=== PATIENT | male | born 1960 | race Caucasian/White ===

== ENCOUNTER → 2017-09-16 | Outpatient (CLI) | payer BC | LOC: LAB 15:36 | DX: Z00.00 Encounter for general adult medical examination without abnormal findings (principal); E23.0 Hypopituitarism; Z12.5 Encounter for screening for malignant neoplasm of prostate ==

== ENCOUNTER → 2019-05-27 | Outpatient (CLI) | payer BC | LOC: RAD 12:39 | DX: Z11.1 Encounter for screening for respiratory tuberculosis (principal) ==

== ENCOUNTER 2023-12-29 11:13 | Emergency (ER) | payer OTHER ==
[~2023-12-29] VITALS: Ht 185.4 cm; Wt 120.9 kg
[2023-12-29] MEDS ORDERED: ALBUTEROL SULF6.7 GM IH (11:24)
[2023-12-29] MEDS ORDERED: HYDROCORTISONE20 MG (11:24)
[2023-12-29] MEDS ORDERED: ACETAMINOPHEN-H1 TA2 PO (11:24)
[2023-12-29] MEDS ORDERED: TESTOSTERONE75 GM TD (11:24)
[2023-12-29] MEDS ORDERED: MULTIPLE VITAMI1 TA1 PO (11:25)
[2023-12-29] MEDS ORDERED: FISH OIL1 IU PO (11:26)
[2023-12-29] MEDS ORDERED: SYNTHROID25 MCG PO (11:26)
[2023-12-29 11:48] LABS: HEMATOCRIT 52.1 % (42.0-52.0); HEMOGLOBIN 18.2 g/dL (13.5-18.0); MEAN CELL VOLUME 86 fl (78-100); MEAN CORPUSCULAR HEMOGLOBIN 30 pg (27-31); MEAN CORPUSCULAR HGB CONC 35 g/dL (33-37); MEAN PLATELET VOLUME 8.4 fl (7.4-10.4); PLATELET COUNT 379 K/mm3 (130-400); RED BLOOD COUNT 6.09 M/mm3 (4.20-5.60); RED CELL DISTRIBUTION WIDTH 11.9 % (11.5-14.5)
[2023-12-29 11:54] LABS: ALBUMIN 4.6 g/dL (3.4-4.8)
[2023-12-29 11:55] LABS: CALCIUM 9.9 mg/dL (8.3-10.5)
[2023-12-29 11:56] LABS: TOTAL PROTEIN 8.1 g/dL (6.2-8.1)
[2023-12-29 11:58] LABS: TOTAL BILIRUBIN 2.15 mg/dL (0.2-1.2)
[2023-12-29 12:04] LABS: LYMPHOCYTE 10 % (20-51); MONOCYTE 8 % (3-10); NEUTROPHILS 80 % (42-75)
[2023-12-29 13:45] VITALS: BP 132/86
== END 2023-12-29 13:50 | disposition short-term general hospital (02) ==
LOC: ED 11:13
PROVIDERS: Nurse Practitioner
DX: J05.10 Acute epiglottitis without obstruction (principal); J36 Peritonsillar abscess
CPT/HCPCS: J0171; J0295; J1100; J1200; J3490; J7030; Q9967

== ENCOUNTER → 2024-07-06 | Day surgery (SDC) | payer OTHER ==
[~2024-07-06] MED LIST: ACETAMINOPHEN-H1 TA2 PO; ALBUTEROL SULF6.7 GM IH; FISH OIL1 IU PO; HYDROCORTISONE20 MG; Lidocaine PF 2% (20 MG/ML) 2 ML VIAL ONE; MULTIPLE VITAMI1 TA1 PO; SYNTHROID25 MCG PO; TESTOSTERONE75 GM TD
== END | disposition home or self-care (01) ==
LOC: MSO 08:22
DX: Z12.11 Encounter for screening for malignant neoplasm of colon (principal); D12.3 Benign neoplasm of transverse colon; K57.30 Diverticulosis of large intestine without perforation or abscess without bleeding
CPT/HCPCS: 00811; J2704; J7120